=== PATIENT | female | born 1985 | race Caucasian/White ===

== ENCOUNTER 2024-08-30 13:05 | Inpatient (IN) | payer MEDICAID ==
[~2024-08-30] VITALS: Ht 175.3 cm; Wt 68.1 kg
[2024-08-30] MEDS ORDERED: potassium Cl 40MEQ/1/2NS 520ml 520 ML IV PRN (13:45)
[2024-08-30] MEDS ORDERED: potassium Cl 20 mEq SR tablet PO PRN ×2 (13:45)
[2024-08-30] MEDS ORDERED: magnesium sulf-water 4G/100mL 100 ML IV PRN (13:45)
[2024-08-30] MEDS ORDERED: ondansetron/PF 4mg/2ml inj IV PRN (13:45)
[2024-08-30] MEDS ORDERED: mag hydrox/Alum hydrox/simeth 30ml oral suspension PO PRN (13:45)
[2024-08-30] MEDS ORDERED: magnesium sulf-water 2g/50mL 50 ML IV PRN (13:45)
[2024-08-30] MEDS ORDERED: magnesium Cl slow-release 64mg tablet PO PRN (13:45)
[2024-08-30] MEDS ORDERED: acetaminophen 325mg tablet PO PRN ×2 (13:45)
[2024-08-30] MEDS: amiodarone/D5 360MG/200ML BAG 200 ML IV SCH (13:51)
[2024-08-30] MEDS: enoxaparin 100mg/ml syringe SUBCUT ONE (13:53)
[2024-08-30 13:54] LABS: BASOPHILS % (AUTO) 0.2 % (0-1); EOSINOPHILS % (AUTO) 0.3 % (0-6); HEMATOCRIT 43.5 % (35.0-45.0); HEMOGLOBIN 14.8 g/dl (12.0-16.0); MEAN CORPUSCULAR HEMOGLOBIN 33.2 PG (27.0-31.0); MEAN CORPUSCULAR HGB CONC 34.1 g/dL (33.0-36.5); MEAN CORPUSCULAR VOLUME 97.3 FL (78-98); MEAN PLATELET VOLUME 7.4 FL (7.4-10.4); MONOCYTES # (AUTO) 0.5 X10'3 (0-0.9); MONOCYTES % (AUTO) 6.3 % (2-12); NEUTROPHILS # (AUTO) 6.2 X10'3 (1.8-7.7); NEUTROPHILS % (AUTO) 80.2 % (42-75); PLATELET COUNT 273 X10'3 (140-440); RED BLOOD COUNT 4.46 X10'6 (4.20-5.60); RED CELL DISTRIBUTION WIDTH 12.2 % (11.5-14.5); WHITE BLOOD COUNT 7.7 X10'3 (4.5-11.0)
[2024-08-30 14:04] LABS: ALANINE AMINOTRANSFERASE 55 U/L (12-78); ALBUMIN 3.9 G/DL (3.4-5.0); ALBUMIN/GLOBULIN RATIO 1.1 (1.1-1.5); ALKALINE PHOSPHATASE 65 IU/L (46-116); ANION GAP 13 (8-16); ASPARTATE AMINO TRANSFERASE 72 U/L (10-37); BILIRUBIN,TOTAL 1.6 MG/DL (0.1-1.0); BLOOD UREA NITROGEN 16 MG/DL (7-18); BUN/CREATININE RATIO 21.9 (10.0-20.0); CALCIUM 8.4 MG/DL (8.5-10.1); CHLORIDE 103 MMOL/L (99-107); CREATININE 0.73 MG/DL (0.40-0.90); GLUCOSE 56 MG/DL (70-104); POTASSIUM 4.9 MMOL/L (3.5-5.1); SODIUM 134 MMOL/L (135-145); TOTAL CARBON DIOXIDE 17.6 MMOL/L (24-32); TOTAL PROTEIN 7.3 G/DL (6.4-8.2); eCRCL 109 ML/MIN; eGFR 89 ML/MIN
[2024-08-30 14:15] LABS: HCG SERUM QL NEGATIVE
[2024-08-30] MEDS ORDERED: LORazepam 2 mg/ml vial IV PRN (14:15)
[2024-08-30] MEDS ORDERED: haloperidol 5mg tablet PO PRN (14:15)
[2024-08-30] MEDS ORDERED: haloperidol lactate 5mg/ml inj IM PRN (14:15)
[2024-08-30 14:35] LABS: MAGNESIUM 2.2 MG/DL (1.5-2.4)
[2024-08-30 16:16] LABS: URINE AMPHETAMINE SCREEN NEGATIVE (Neg); URINE BARBITUATE SCREEN NEGATIVE (Neg); URINE BENZODIAZEPINES SCREEN NEGATIVE (Neg); URINE CANNABINOID SCREEN POSITIVE (Neg); URINE COCAINE SCREEN NEGATIVE (Neg); URINE METHADONE SCREEN NEGATIVE (Neg); URINE OPIATE SCREEN NEGATIVE (Neg); URINE PHENCYCLIDINE SCREEN NEGATIVE (Neg)
[2024-08-30] MEDS ORDERED: NO HOME MEDS (19:36)
[2024-08-30] MEDS: heparin, porcine 5000 units/ml vial SQ SCH (20:00)
[2024-08-30] MEDS: thiamine 100mg/ml 2ml inj. IV SCH (20:10)
[2024-08-30 21:30] VITALS: RESP 20; O2SAT 99
[2024-08-30 22:05] VITALS: BP 128/86; PULSE 68; RESP 12; TEMP 97.9; O2SAT 99
[2024-08-31] VITALS: BP 127/82; PULSE 75
[2024-08-31 02:00] VITALS: BP 138/85; PULSE 77; RESP 15; TEMP 98.5; O2SAT 99
[2024-08-31 04:00] VITALS: BP 113/75; PULSE 72
[2024-08-31 07:29] VITALS: BP 108/72; PULSE 75; RESP 16; TEMP 98.6; O2SAT 95
[2024-08-31 07:41] LABS: BASOPHILS % (AUTO) 0.4 % (0-1); EOSINOPHILS # (AUTO) 0.2 X10'3 (0-0.9); EOSINOPHILS % (AUTO) 4.3 % (0-6); HEMATOCRIT 39.3 % (35.0-45.0); HEMOGLOBIN 13.3 g/dl (12.0-16.0); LYMPHOCYTES # (AUTO) 1.4 X10'3 (1.1-4.8); LYMPHOCYTES % (AUTO) 31.9 % (21-51); MEAN CORPUSCULAR HGB CONC 33.9 g/dL (33.0-36.5); MEAN CORPUSCULAR VOLUME 97.4 FL (78-98); MEAN PLATELET VOLUME 7.5 FL (7.4-10.4); MONOCYTES # (AUTO) 0.4 X10'3 (0-0.9); MONOCYTES % (AUTO) 9.4 % (2-12); NEUTROPHILS # (AUTO) 2.3 X10'3 (1.8-7.7); PLATELET COUNT 239 X10'3 (140-440); RED BLOOD COUNT 4.04 X10'6 (4.20-5.60); RED CELL DISTRIBUTION WIDTH 12.2 % (11.5-14.5); WHITE BLOOD COUNT 4.3 X10'3 (4.5-11.0)
[2024-08-31 08:00] VITALS: RESP 16; O2SAT 95
[2024-08-31] MEDS: folic acid 1mg/0.2ml inj IV SCH (08:19)
[2024-08-31 08:21] LABS: ALANINE AMINOTRANSFERASE 39 U/L (12-78); ALBUMIN 3.4 G/DL (3.4-5.0); ALBUMIN/GLOBULIN RATIO 1.1 (1.1-1.5); ALKALINE PHOSPHATASE 56 IU/L (46-116); ANION GAP 17 (8-16); ASPARTATE AMINO TRANSFERASE 32 U/L (10-37); BILIRUBIN,TOTAL 0.5 MG/DL (0.1-1.0); BLOOD UREA NITROGEN 11 MG/DL (7-18); BUN/CREATININE RATIO 14.1 (10.0-20.0); CALCIUM 8.2 MG/DL (8.5-10.1); CHLORIDE 105 MMOL/L (99-107); CREATININE 0.78 MG/DL (0.40-0.90); GLUCOSE 70 MG/DL (70-104); MAGNESIUM 1.9 MG/DL (1.5-2.4); POTASSIUM 4.1 MMOL/L (3.5-5.1); SODIUM 139 MMOL/L (135-145); THYROID STIMULATING HORMONE 2.65 ulU/ml (0.34-4.50); TOTAL CARBON DIOXIDE 17.5 MMOL/L (24-32); TOTAL PROTEIN 6.5 G/DL (6.4-8.2); eCRCL 102 ML/MIN; eGFR 83 ML/MIN
[2024-08-31] MEDS: diltiazem CD 120mg capsule (once-daily) PO SCH (08:26)
[2024-08-31] MEDS ORDERED: CARCD120C PO (11:39)
[2024-08-31] MEDS ORDERED: FOLI1TAB27 PO (11:39)
[2024-08-31] MEDS ORDERED: THIA100T70 PO (11:39)
[2024-09-01] MEDS ORDERED: LORazepam 2 mg/ml vial IV PRN (14:15)
[2024-09-01] MEDS ORDERED: LORazepam 1 MG tablet PO PRN (14:15)
[2024-09-03] MEDS ORDERED: thiamine 100mg tablet PO SCH (08:00)
[2024-09-03] MEDS ORDERED: LORazepam 1 MG tablet PO PRN (14:15)
[2024-09-03] MEDS ORDERED: LORazepam 2 mg/ml vial IV PRN (14:15)
[2024-09-04] MEDS ORDERED: folic acid 1mg tablet PO SCH (08:00)
== END 2024-08-31 12:54 | disposition home or self-care (01) | DRG 201 ==
LOC: ER 13:06 → ED HOLD 13:49 → PCU 3S 21:39
PROVIDERS: ADMIT Internal Medicine; ATTEND Internal Medicine
DX: I48.0 Paroxysmal atrial fibrillation (principal); I47.20 Ventricular tachycardia, unspecified; I34.1 Nonrheumatic mitral (valve) prolapse; F10.10 Alcohol abuse, uncomplicated; E86.0 Dehydration; Z79.899 Other long term (current) drug therapy; Z88.5 Allergy status to narcotic agent
CPT/HCPCS: 36415; 71045; 80053; 80305; 83735; 84443; 84484; 84703; 85025; 87081; 93005; 93306; 99291; A6449; G0378; J0282; J1644; J1650; J3411; J3490